=== PATIENT | female | born 1945 | race Caucasian/White ===

== ENCOUNTER 2018-09-24 09:54 | Day surgery (SDC) | payer OTHER, MEDICARE ==
[2018-09-24] MEDS ORDERED: NS 500 ML IV ONE (10:02)
[2018-09-24] MEDS ORDERED: MIDAZOLAM 2 MG/2 ML VIAL IVP ONE (10:02)
[2018-09-24] MEDS ORDERED: BENZOCAINE UNIT DOSE SPRAY HURRICAINE MM ONE (10:02)
[2018-09-24] MEDS ORDERED: fentaNYL 100 MCG/2 ML INJ IVP ONE (10:02)
[2018-09-24] MEDS ORDERED: ATROPINE SULFATE 1 MG/10 ML SYR IVP ONE (10:02)
[2018-09-24 10:43] LABS: INR 1.64 (0.83-1.16); PROTIME(PATIENT) 18.7 SEC (12.0-15.0)
[2018-09-24] MEDS ORDERED: SUCCINYLCHOLINE CHLORIDE 200 MG/10 ML SYR IVP ONE (11:31)
[2018-09-24] MEDS ORDERED: LIDOCAINE 2% 100 MG/5 ML SYR ONE (11:31)
[2018-09-24] MEDS ORDERED: PROPOFOL 200 MG/20 ML VIAL ONE (11:31)
--- NOTE | 2018-09-24 11:35 | PDHPUP ---
History & Physical Update H&P update statement: This history and physical update is based on an assessment of the patient which was completed after admission or registration (within 24 hours), but prior to the surgery/procedure. H&P update: H&P reviewed & patient examined, no change in patient's condition since H&P completed
--- NOTE | 2018-09-24 11:56 | PDTEE1 ---
MELANY Cardioversion Procedure Procedure: electrical cardioversion, transesophageal echo Indications: other (Atrial flutter) Consent: signed and in chart Anticoagulation: warfarin Procedural Details: Pads were placed in anterior-posterior position. MELANY probe was advanced and standard images obtained. There is no evidence of left atrial or left atrial appendage thrombus. Synchronized cardioversion attempt #1: 200J Results: normal sinus rhythm Conclusions: successful cardioversion
--- NOTE | 2018-09-24 12:00 | PDANEPAE ---
ANE History of Present Illness a flutter s/f MELANY/CV ANE Past Medical History - Cardiovascular History Hx Hypertension: Yes Hx Arrhythmias: Yes Hx Coronary Artery / Peripheral Vascular Disease: Yes Hx CHF / Valvular Disease: Yes - Pulmonary History Hx COPD: No Hx Asthma/Reactive Airway Disease: Yes Hx Sleep Apnea: No - Endocrine History Hypothyroid: Yes ANE Review of Systems Review of Systems: - Exercise capacity METS (RN): 3 METS ANE Patient History - Allergies Allergies/Adverse Reactions: Penicillins Allergy (Severe, Verified 09/24/18 11:02) Anaphylaxis apixaban [From Eliquis] Allergy (Verified 09/24/18 11:02) Rash Beta-Blockers (Beta-Adrenergic Bloc Allergy (Verified 09/24/18 11:02) Wheezing/ Can't breath diltiazem Allergy (Verified 09/24/18 11:02) Rash rivaroxaban [From Xarelto] Allergy (Verified 09/24/18 11:02) Rash Sulfa (Sulfonamide Antibiotics) Allergy (Verified 09/24/18 11:02) Rash - Home Medications Home medications: home medication list seen and reviewed Home Medications: Acetamn/Diphenhydramine 500/25 [Tylenol PM (*)] 2 each PO HS 09/24/18 [Last Taken 09/23/18] Albuterol [Ventolin Hfa Inhaler] 2 puffs IH Q4 PRN 09/24/18 [Last Taken Unknown] Alendronate Sodium [Fosamax 70 MG (*)] 70 mg PO ARCHIBALD@0700 09/24/18 [Last Taken ] Calcium Carb W/Vit D [Calcium Carb W/Vit D 500/200 (*)] 500 mg PO DAILY [Last Taken 09/23/18] Cholecalciferol Vit D3 [Vitamin D3 (*)] 2,000 units PO DAILY 09/24/18 [Last Taken 09/23/18] Cyanocobalamin [Vitamin B12 (*)] 1,000 mcg PO DAILY 09/24/18 [Last Taken ] Digoxin [Lanoxin 250 mcg (RX)] 250 mcg PO DAILY 09/24/18 [Last Taken 09/24/18] Docusate Sodium [Colace 100 MG (*)] 200 mg PO HS 09/24/18 [Last Taken 09/23/18] Fluticasone Nasal [Flonase Nasal [place] (RX)] 2 sprays NASAL DAILY 09/24/18 [ Last Taken 09/24/18] Fluticasone/Salmeter 250/50Mcg [Advair 250/50 (*)] 1 puffs IH BID 09/24/18 [ Last Taken 09/24/18] Folic Acid [Folic Acid 1 MG (*)] 1 mg PO BID 09/24/18 [Last Taken 09/23/18] Herbals/Supplements -Info Only 1 ea PO DAILY 09/24/18 [Last Taken Unknown] Levothyroxine [Synthroid 150 mcg (*)] 150 mcg PO DAILY06 09/24/18 [Last Taken ] Losartan Potassium [Cozaar 50 mg (*)] 50 mg PO DAILY@18 09/24/18 [Last Taken 10/08] Magnesium Oxide [Magnesium Oxide 400 mg (*)] 400 mg PO DAILY 09/24/18 [Last Taken 09/23/18] Melatonin [Melatonin 3 MG (*)] 3 mg PO HS 09/24/18 [Last Taken 09/23/18] Multivitamins [Multivitamin (*)] 1 each PO DAILY 09/24/18 [Last Taken 09/24/18] [place]-3 Fatty Acids [Fish Oil 1000 mg (*)] 1,000 mg PO DAILY 09/24/18 [Last Taken 09/23/18] Pravastatin Sodium 20 mg PO HS 09/24/18 [Last Taken 09/23/18] Psyllium Husk (with Sugar) [Metamucil Packet] 1 each PO DAILY 09/24/18 [Last Taken 09/23/18] Pyridoxine HCl [Vitamin B-6 100 mg (*)] 50 mg PO BID 09/24/18 [Last Taken ] Tiotropium Inhaler [Spiriva Handihaler] 18 mcg IH DAILY 09/24/18 [Last Taken 11/07] Warfarin Sodium [Coumadin 5MG (*)] 5 mg PO DAILY16 09/24/18 [Last Taken 09/23/18 ] clonIDINE [Catapres (*)] 0.1 mg PO HS 09/24/18 [Last Taken 09/23/18] - NPO status NPO Status: no food or drink >8 hours - Anes Hx Anes Hx: no prior problems - Smoking Hx Smoking Status: Former smoker - Alcohol Use Alcohol Use: None - Family Anes Hx Family Anes Hx: none ANE Labs/Vital Signs - Labs Result Diagrams: 09/24/18 10:19 - Vital Signs Height: 168 cm Weight: 58.5 kg ANE Physical Exam - Airway Neck exam: decreased ROM Mallampati Score: Class 2 Mouth exam: normal dental/mouth exam - Pulmonary Pulmonary: no respiratory distress - Cardiovascular Cardiovascular: regular rate and rhythym - ASA Status ASA Status: III ANE Anesthesia Plan Anesthesia Plan: GA with mask Total IV Anesthesia: Yes
--- NOTE | 2018-09-24 12:01 | POSTANESTH ---
Post Anesthetic Evaluation Cardiovascular Status: Normal, Stable (? junctional rhythm) Respiratory Status: Similar to Pre-op Cond., Tx Decrease in SpO2 (chronic O2 for COPD) Level of Consciousness/Mental Status: Can Participate in Eval, Mildly Sleepy, Arousable Pain Control: Adequate, Prn Tx Ordered Nausea/Vomiting Control: Adequate, Prn Tx Ordered Complications Possibly Related to Anesthesia: None Noted
--- NOTE | 2018-09-24 17:18 | CPEKG ---
Test Reason : OPEN Blood Pressure : / mmHG Vent. Rate : 077 BPM Atrial Rate : 231 BPM P-R Int : 166 ms QRS Dur : 096 ms QT Int : 329 ms P-R-T Axes : 266 025 257 degrees QTc Int : 373 ms Atrial flutter with predominant 3:[address] depression lateral leads. Confirmed by Janak Heard ([id number]) on 09/24/2018 5:17:56 PM Referred By: Aiden Jose Confirmed By:Janak Heard
--- NOTE | 2018-09-24 17:19 | CPEKG ---
Test Reason : OPEN Blood Pressure : / mmHG Vent. Rate : 066 BPM Atrial Rate : 066 BPM P-R Int : 104 ms QRS Dur : 092 ms QT Int : 353 ms P-R-T Axes : 126 046 -89 degrees QTc Int : 370 ms Sinus rhythm Short GA interval Diffuse ST depression Confirmed by Janak Heard ([id number]) on 09/24/2018 5:19:39 PM Referred By: Aiden Jose Confirmed By:Janak Heard
== END 2018-09-24 13:24 | disposition home or self-care (01) ==
LOC: FCATH 09:54
PROVIDERS: ATTEND Internal Medicine Interventional Cardiology
PROC: B245ZZ4 Ultrasonography of Left Heart, Transesophageal (ICD-10-PCS; principal; 2018-09-24)
PROC: 5A2204Z Restoration of Cardiac Rhythm, Single (ICD-10-PCS; principal; 2018-09-24)
DX: I48.92 Unspecified atrial flutter (principal); J44.9 Chronic obstructive pulmonary disease, unspecified; I36.1 Nonrheumatic tricuspid (valve) insufficiency; I10 Essential (primary) hypertension; E78.5 Hyperlipidemia, unspecified; E03.9 Hypothyroidism, unspecified; Z87.891 Personal history of nicotine dependence
CPT/HCPCS: J0330; J0461; J2001; J2704

== ENCOUNTER → 2018-12-02 | Outpatient (CLI) | payer OTHER, MEDICARE | LOC: BHLMT 11:00 ==